=== PATIENT | female | born 1955 | race Caucasian/White ===

== ENCOUNTER 2017-06-08 10:11 | Day surgery (SDC) | payer OTHER ==
[2017-06-08] MEDS ORDERED: PROPOFOL 200 MG/20 ML VIAL As Ordered ×2 (10:17→12:13)
[2017-06-08] MEDS ORDERED: LIDOCAINE 2% INJ 100 MG/5 ML SDV (FOR ANES.) As Ordered (12:06)
[2017-06-08] MEDS: NS 1,000 ML IV (12:15)
== END 2017-06-08 13:12 | disposition home or self-care (01) ==
LOC: M OPP 10:11
DX: Z12.11 Encounter for screening for malignant neoplasm of colon (principal); Z86.010 Personal history of colon polyps; D12.5 Benign neoplasm of sigmoid colon; K57.30 Diverticulosis of large intestine without perforation or abscess without bleeding; K44.9 Diaphragmatic hernia without obstruction or gangrene; I10 Essential (primary) hypertension; R01.1 Cardiac murmur, unspecified; K21.9 Gastro-esophageal reflux disease without esophagitis; R12 Heartburn; M19.90 Unspecified osteoarthritis, unspecified site; N81.10 Cystocele, unspecified; Z96.642 Presence of left artificial hip joint; Z96.653 Presence of artificial knee joint, bilateral; Z88.8 Allergy status to other drugs, medicaments and biological substances; Z79.82 Long term (current) use of aspirin; Z79.899 Other long term (current) drug therapy
CPT/HCPCS: 45385

== ENCOUNTER → 2020-02-21 | Outpatient (CLI) | payer SELFPAY ==
[~2020-02-21] MED LIST: ASPI81TA86 PO; CRAN500C2 PO; HYDR12.55 PO; LOSA50TA88 PO; MELO7.5T7 PO; OSTETAB4 PO
== END ==
LOC: M LABCAHC 09:15
PROVIDERS: ATTEND Pediatrics
DX: Z11.59 Encounter for screening for other viral diseases (principal)

== ENCOUNTER → 2022-09-05 | Outpatient (CLI) | payer MEDICARE ==
[~2022-09-05] MED LIST changes: +LOSA50TA28 PO; -LOSA50TA88 PO
== END ==
LOC: M CARPUL 11:01
PROVIDERS: ATTEND Registered Nurse
DX: R01.1 Cardiac murmur, unspecified (principal); I35.0 Nonrheumatic aortic (valve) stenosis

== ENCOUNTER 2024-06-03 07:16 | Day surgery (SDC) | payer MEDICARE ==
[~2024-06-03] VITALS: Ht 175.3 cm; Wt 107.5 kg
[~2024-06-03 07:16] MED LIST changes: +CODCAP6 PO; +CVS500CA5 PO; +ERGO500029 PO
[2024-06-03] MEDS ORDERED: propofoL 200 MG/20 ML VIAL As Ordered ONE (07:17)
[2024-06-03] MEDS ORDERED: LIDOCAINE 2% 100MG/5ML SDV (FOR ANES.) As Ordered ONE (07:17)
[2024-06-03] MEDS ORDERED: fentaNYL 100 MCG/2 ML INJECTION As Ordered ONE (07:18)
[2024-06-03 08:38] VITALS: TEMP 98.4
[2024-06-03 08:55] VITALS: BP 164/79; O2SAT 95
== END 2024-06-03 09:05 | disposition home or self-care (01) ==
LOC: M OPP 07:16
PROVIDERS: ATTEND Surgery
DX: K44.9 Diaphragmatic hernia without obstruction or gangrene (principal); K22.2 Esophageal obstruction; K21.00 Gastro-esophageal reflux disease with esophagitis, without bleeding; Z88.8 Allergy status to other drugs, medicaments and biological substances; Z79.899 Other long term (current) drug therapy
CPT/HCPCS: 43239; 88305; J3010